=== PATIENT | male | born 1940 | race Caucasian/White ===

== ENCOUNTER → 2018-06-05 17:48 | Outpatient (REF) | payer MEDICARE, SELFPAY ==
[2018-06-09 12:23] LABS: IgA 139 mg/dL (85-499); Interpretation SEE COMMENTS; Tissue Transglutaminase IgA <1.2 U/mL (<4.0)
== END ==
LOC: NCHCN 17:48
PROVIDERS: PCP Internal Medicine; Visit Provider Internal Medicine
DX: R19.7 Diarrhea, unspecified (principal); R10.9 Unspecified abdominal pain
CPT/HCPCS: 82784; 83516

== ENCOUNTER 2018-07-03 16:01 | Outpatient (REF) | payer MEDICARE, SELFPAY ==
[2018-07-03 20:48] LABS: Uric Acid 4.6 mg/dL (3.5-7.2)
== END 2018-07-03 16:21 ==
LOC: NCHCN 16:01
PROVIDERS: PCP Internal Medicine; Visit Provider Internal Medicine
DX: M10.9 Gout, unspecified (principal)
CPT/HCPCS: 84550

== ENCOUNTER 2018-07-17 11:17 | Outpatient (REF) | payer MEDICARE, SELFPAY ==
[2018-07-17 20:45] LABS: Bilirubin Negative (Negative); Blood Negative (Negative); Clarity Clear; Glucose Negative (Negative); Ketones Negative (Negative); Leukocyte Esterase Negative (Negative); Nitrite Negative (Negative); Specific Gravity <= 1.005 (1.005-1.025); Urobilinogen 0.2 EU/dL (Up TO 0.2); pH 5.5 (5-8)
[2018-07-17 20:49] LABS: Anion Gap 10.2 mmol/L (3-11); BUN 21 mg/dL (7-18); CO2 26.8 mmol/L (21.0-32.0); CREATININE 1.29 mg/dL (0.70-1.30); Calcium 9.2 mg/dL (8.5-10.1); Chloride 104 mmol/L (98-107); Estimated GFR 54.15 (mL/min/1.73m2); Glucose 82 mg/dL (70-100); Potassium 4.1 mmol/L (3.5-5.1); Sodium 141 mmol/L (136-145)
[2018-07-21 10:43] LABS: PSA, Screening 0.5 ng/ml (0-6.5)
== END 2018-07-17 11:37 ==
LOC: NCHCN 11:17
PROVIDERS: PCP Internal Medicine; Visit Provider Nurse Practitioner
DX: R35.0 Frequency of micturition (principal); Z12.5 Encounter for screening for malignant neoplasm of prostate
CPT/HCPCS: 80048; 84153; 81003

== ENCOUNTER → 2018-07-29 10:44 | Outpatient (BNVA) | payer MEDICARE, SELFPAY | PROVIDERS: PCP Internal Medicine; Visit Provider Nurse Practitioner Gerontology | DX: R35.1 Nocturia (principal); Z12.5 Encounter for screening for malignant neoplasm of prostate; I10 Essential (primary) hypertension | CPT/HCPCS: 99204; 99215 ==

== ENCOUNTER → 2019-02-27 07:58 | Outpatient (BNVA) | payer MEDICARE, SELFPAY | PROVIDERS: PCP Internal Medicine; Referring Provider Internal Medicine; Visit Provider Surgery | DX: R10.31 Right lower quadrant pain (principal); I10 Essential (primary) hypertension | CPT/HCPCS: 99202; 99214 ==

== ENCOUNTER → 2019-03-02 09:23 | Outpatient (BNVA) | payer MEDICARE, SELFPAY | PROVIDERS: PCP Internal Medicine; Referring Provider Internal Medicine; Visit Provider Physical Therapy Assistant | DX: R10.31 Right lower quadrant pain (principal); K40.90 Unilateral inguinal hernia, without obstruction or gangrene, not specified as recurrent; I71.9 Aortic aneurysm of unspecified site, without rupture | CPT/HCPCS: 99212; 99213 ==

== ENCOUNTER 2019-03-04 00:47 | Outpatient (CLI) | payer MEDICARE, SELFPAY ==
--- NOTE | 2019-03-04 08:38 | DI.CT_ITS ---
SYMPTOM/DIAGNOSIS: RT GROIN PAIN, SWELLING, RLQ PAIN, R10.31, ? HERNIA ABDOMEN AND PELVIC CT: CT scan of the abdomen and pelvis was performed following the uneventful administration of intravenous and oral contrast material. There are no priors for comparison. The visualized lung bases are clear. The liver is normal in size. There is a mildly lobulated contour of the liver which may represent some degree of hepatic cirrhosis. Please correlate clinically. There is an area of decreased attenuation at the anterior aspect of the anterior segment of the right lobe of the liver measuring 1.7 cm. It is adjacent to the gallbladder fossa. This may represent focal fatty infiltration. Ultrasound may be considered for further evaluation. The patient is status post cholecystectomy. There is no biliary ductal dilatation. The portal, superior mesenteric and splenic veins are patent. The pancreas is unremarkable as are the spleen and adrenal glands. The right kidney appears small and mildly atrophic. No renal mass, calculus or obstruction is seen. There is compensatory hypertrophy of the left kidney. There is a non obstructing 2 mm. stone in the mid pole of the left kidney anteriorly. The urinary bladder is intact. The reproductive organs are unremarkable. There is atherosclerosis of the abdominal aorta. There is an infrarenal abdominal aortic aneurysm measuring approximately 13 cm. in length. It measures 5.9 cm. in transverse diameter and 5.8 cm. AP diameter. It does not appear to extend into the iliac arteries. No significant abdominal or pelvic adenopathy, ascites or pneumoperitoneum is present. There is diverticulosis of the colon but no evidence of acute diverticulitis. No evidence of bowel obstruction is seen. No findings to suggest an acute appendicitis are present. There does appear to be a small fat containing inguinal hernia. There are degenerative changes seen in the spine. There is reversal of the normal lumbar lordosis centered at L 2-3. IMPRESSION: 1. Findings suggestive of a small fat containing right inguinal hernia. 2. 5.9 by 5.8 cm. infrarenal abdominal aortic aneurysm. 3. 1.7 cm. area of decreased attenuation adjacent to the gallbladder fossa in the right lobe of the liver. This may represent focal fatty infiltration. Ultrasound should be considered for further evaluation. 4. Lobulated contour of the liver suspicious for hepatic cirrhosis. Please correlate clinically. 5. Colonic diverticulosis but no evidence of acute diverticulitis.
[2019-03-04] MEDS: Omnipaque 350 MG/ML 50 ML BTL IJ (09:32)
[2019-03-04] MEDS: Breeza Beverage 473 ML BTL PO ×2 (09:33)
[2019-03-04 09:40] LABS: CREATININE 1.32 mg/dL (0.70-1.30); Estimated GFR 52.59 (mL/min/1.73m2)
[2019-03-04] MEDS: Omnipaque 350 MG/ML 100 ML BTL IJ (10:21)
== END 2019-03-04 01:07 ==
PROVIDERS: PCP Internal Medicine; Visit Provider Physical Therapy Assistant
DX: R10.31 Right lower quadrant pain (principal); K40.90 Unilateral inguinal hernia, without obstruction or gangrene, not specified as recurrent; I71.4 Abdominal aortic aneurysm, without rupture; K76.0 Fatty (change of) liver, not elsewhere classified; K76.89 Other specified diseases of liver; K57.30 Diverticulosis of large intestine without perforation or abscess without bleeding
CPT/HCPCS: 36415; 74177; 82565; J3490; Q9967

== ENCOUNTER 2020-05-24 14:02 | Outpatient (REF) | payer MEDICARE, SELFPAY ==
[2020-05-24 21:12] LABS: HCT 43.5 % (40.0-50.0); HGB 14.9 g/dL (13.5-17.5); MCH 33.9 pg (27.0-33.0); MCHC 34.3 % (32.0-36.0); MCV 99.1 fL (80-95); MPV 11.2 fL (8.0-11.0); Platelet Count 146 10^3/uL (130-400); RBC 4.39 10^6/uL (4.36-5.78); RDW 12.2 % (11.8-14.1); RDW-SD 44.3 fL; WBC 5.08 10^3/uL (4.4-10.8)
[2020-05-24 21:19] LABS: Anion Gap 8.7 mmol/L (3-11); BUN 26 mg/dL (7-18); CO2 28.3 mmol/L (21.0-32.0); CREATININE 1.25 mg/dL (0.70-1.30); Calcium 9.2 mg/dL (8.5-10.1); Chloride 104 mmol/L (98-107); Estimated GFR 55.86 (mL/min/1.73m2); Glucose 108 mg/dL (74-106); Potassium 4.4 mmol/L (3.5-5.1); Sodium 141 mmol/L (136-145); Uric Acid 5.2 mg/dL (3.5-7.2)
== END 2020-05-24 14:22 ==
LOC: NCHCN 14:02
PROVIDERS: PCP Internal Medicine; Visit Provider Internal Medicine
DX: D69.6 Thrombocytopenia, unspecified (principal); R79.89 Other specified abnormal findings of blood chemistry; D75.89 Other specified diseases of blood and blood-forming organs; M10.9 Gout, unspecified
CPT/HCPCS: 80048; 85027; 84550

== ENCOUNTER 2021-03-24 10:34 | Outpatient (REF) | payer MEDICARE, SELFPAY ==
[2021-03-24 14:15] LABS: BUN 17 mg/dL (7-18); CREATININE 1.1 mg/dL (0.70-1.30); Calcium 8.9 mg/dL (8.5-10.1); Chloride 105 mmol/L (98-107); Glucose 108 mg/dL (74-106); Potassium 4.5 mmol/L (3.5-5.1); Sodium 141 mmol/L (136-145)
== END 2021-03-24 10:35 | disposition home or self-care (01) ==
LOC: NCHCN 10:34
PROVIDERS: PCP Internal Medicine; Visit Provider Internal Medicine
DX: I10 Essential (primary) hypertension (principal)
CPT/HCPCS: 80048

== ENCOUNTER 2021-08-08 07:22 | Outpatient (REF) | payer MEDICARE, SELFPAY ==
[2021-08-09 10:49] LABS: COVID-19 RT-PCR UVMMC Result Negative (Negative)
== END 2021-08-08 07:23 | disposition home or self-care (01) ==
LOC: NCHCN 07:22
PROVIDERS: PCP Internal Medicine; Visit Provider Family Medicine
DX: Z20.822 Contact with and (suspected) exposure to COVID-19 (principal); J06.9 Acute upper respiratory infection, unspecified
CPT/HCPCS: U0003